=== PATIENT | male | born 1965 | race Caucasian/White ===

== ENCOUNTER → 2023-07-06 09:05 | Outpatient (CLI) | payer BC, SELFPAY ==
--- NOTE | ~2023-07-06 | CT_ITS ---
EXAMINATION: CT abdomen pelvis w con INDICATION: Hematuria TECHNIQUE: Computed tomographic images of the abdomen and pelvis were obtained after the administrati on of 100 cc of Omnipaque 350 intravenous contrast. The dose-length product (DLP) was 1211.78 mGy-cm. Automated exposure control and iterative reconstruction technique were employed. COMPARISON: None available FINDINGS: Minimal dependent atelectasis is present in the lung bases. The heart size is normal. There is moderate gynecomastia. The liver, spleen, pancreas, gallbladder, and adrenal glands are normal. C ysts of the kidneys measure up to 5.8 cm on the right. No stones are identified in the kidneys, urete rs, or bladder. No hydronephrosis or hydroureter. No pathologically enlarged abdominal or pelvic lymp h nodes are identified. No free intraperitoneal gas or evidence of bowel obstruction. The appendix is normal. There is mild lumbar spondylosis. IMPRESSION: 1. No CT correlate for the patient's symptoms. Reviewed, dictated and finalized at location [facility] [employer]
[2023-07-06 09:22] LABS: Estimated Glomerular Filt Rate 57
== END ==
PROVIDERS: PCP Family Medicine; Visit Provider Family Medicine
DX: R31.9 Hematuria, unspecified (principal)
CPT/HCPCS: 74177; Q9967